=== PATIENT | male | born 1955 | race Hispanic/Latino ===

== ENCOUNTER 2016-09-07 10:34 | Day surgery (SDC) | payer MEDICARE ==
[~2016-09-07 10:34] MED LIST: NACL 0.9% IR ONE
[2016-09-07] MEDS ORDERED: NACL 0.9% 1000 ML 1,000 ML ONE (11:10)
--- NOTE | 2016-09-07 11:19 | Anesthesia Day of Surgery ---
Anesthesia Day of Surgery - Day of Surgery Patient Examined: Yes Patient H&P Reviewed: Yes Patient is NPO: Yes
[2016-09-07] MEDS ORDERED: VERSED IV NR (11:20)
[2016-09-07] MEDS ORDERED: NACL 0.9% 1000 ML 1,000 ML IV SCH (11:20)
--- NOTE | 2016-09-07 11:20 | Anesthesia Consultation ---
Anesthesia Consult and Med Hx Date of service: 09/07/16 - Airway Anesthetic Teeth Evaluation: Good, Caps (over front top tooth) ROM Head & Neck: Adequate Mental/Hyoid Distance: Adequate Mallampati Class: Class II Intubation Access Assessment: Probably Good - Pulmonary Exam CTA: Yes - Cardiac Exam Cardiac Exam: RRR - Pre-Operative Health Status ASA Pre-Surgery Classification: ASA2 Proposed Anesthetic Plan: General - Pulmonary Hx Smoking: No Hx Asthma: No - Cardiovascular System Hx Hypertension: No - Central Nervous System Hx Seizures: No CVA: No Hx Back Pain: Yes (chronic pain) - Endocrine Hx Renal Disease: No Hx Insulin Dependent Diabetes: Yes - Other Systems Hx Obesity: Yes
[2016-09-07 11:27] LABS: Basophils % (Auto) 0.6 % (0.0-1.8); Eosinophils % (Auto) 1.1 % (0.0-4.3); Hematocrit 38.1 % (35.5-45.6); Hemoglobin 12.6 gm/dl (11.8-15.2); Mean Corpuscular HGB Conc 33 % (32-34); Mean Corpuscular Hemoglobin 31 pg (28-32); Mean Corpuscular Volume 94 fl (84-94); Platelet Count 262 K/mm3 (140-440); Red Blood Count 4.05 M/mm3 (3.65-5.03); Red Cell Distribution Width 13.5 % (13.2-15.2); White Blood Count 5.3 K/mm3 (4.5-11.0)
[2016-09-07 11:38] LABS: Anion Gap 16 mmol/L; BUN/Creatinine Ratio 23.33; Blood Urea Nitrogen 14 mg/dL (9-20); Calcium 8.8 mg/dL (8.4-10.2); Carbon Dioxide 23 mmol/L (22-30); Glucose 181 mg/dL (75-100); Potassium 4.2 mmol/L (3.6-5.0); Sodium 139 mmol/L (137-145)
[2016-09-07] MEDS ORDERED: SUBLIMAZE ONE (11:42)
[2016-09-07] MEDS ORDERED: DIPRIVAN 10 MG/ML IV ONE (11:42)
[2016-09-07] MEDS ORDERED: ZOFRAN IV PRN (12:00)
[2016-09-07] MEDS ORDERED: ANCEF/STERILE WATER 2 GM/20 ML IV NR (12:00)
[2016-09-07] MEDS ORDERED: PEPCID PO NR (12:00)
[2016-09-07] MEDS ORDERED: XYLOCAINE MPF 2% ONE (12:32)
[2016-09-07] MEDS ORDERED: QUELICIN ONE (12:32)
[2016-09-07] MEDS ORDERED: ZEMURON IV ONE (12:32)
[2016-09-07] MEDS ORDERED: ROBINUL ONE (12:36)
[2016-09-07] MEDS ORDERED: NEOSTIGMINE ONE (12:36)
[2016-09-07] MEDS ORDERED: DILAUDID ONE (12:39)
[2016-09-07] MEDS ORDERED: ZOFRAN ONE (12:56)
[2016-09-07] MEDS ORDERED: NACL 0.9% IR ONE (13:19)
--- NOTE | 2016-09-07 13:26 | Discharge Summary ---
Short Stay Discharge Plan Activity: advance as tolerated Weight Bearing Status: Weight Bear as Tolerated Diet: diabetic Wound: per your surgeon's advice Follow up with: PRIMARY CARE, [Primary Care Provider] - 7 Days
[2016-09-07] MEDS: DILAUDID IV PRN ×2 (14:00→14:10)
--- NOTE | 2016-09-07 14:30 | Operative Report ---
PREOPERATIVE DIAGNOSES: Chronic back pain, disk disease status post multiple operations for removal of a nerve stimulator and 2 leads from the back. POSTOPERATIVE DIAGNOSES: Chronic back pain, disk disease status post multiple operations for removal of a nerve stimulator and 2 leads from the back. ANESTHESIA: General. BLOOD LOSS: Minimal. FINDINGS AND DESCRIPTION OF THE PROCEDURE: The patient had two leads in the back. These were tacked to the subcutaneous tissue with a stitch. It was not easy to remove them. We had to really go ahead and dissect more superiorly to reach an area where they would come out. At that maneuvering I transected them, flushed with the skin, and then after that I opened an incision over the stimulator on the left buttock area after changing the instruments. This was deepened to subcutaneously all the way to the cecum that was then removed in toto. We had good hemostasis. Then, the wound was closed with interrupted stitches of 2-0 Vicryl and then the skin with a continuous stitch interlocking nylon 3-0 for that purpose. My attention was then turned to the wound in the back which was debrided more and all the necrotic tissue was taken out. Then, I closed it with 2 stitches using for that purpose #1 nylon, used 2 stitches only leaving in between some spaces where these were packed with use of 1-inch Iodoform gauze and the bandage were applied. The patient was then transferred to the recovery room in good condition. I did talk to his very extensively, asked her to remove the packs on Monday and to call me and he may take a shower after that and to see me in about 2 weeks. Continue the same with his antibiotics mainly vancomycin and his pain medications given to him by Dr. Salazar. JOB# [id number] FELISHA/DONALD
[2016-09-07] MEDS ORDERED: TRIPLE ANTIBIOTIC TP ONE (14:38)
--- NOTE | 2016-09-07 15:08 | Post Anesthesia Evaluation ---
- Post Anesthesia Evaluation Patient Participated: Yes Airway Patent: Yes Stable Respiratory Function: Yes Nausea/Vomiting: No Temp > 96.8F: Yes Pain Manageable: Yes Adequeate Hydration: Yes Anesthesia Complications: No Block Receding Appropriately: Not Applicable Patient on Ventilator: No Other Comments: Patient had red rash under each eye and upper eyelids in distribution of tape that is used to tape eyes during surgery. Likely had a reaction to the tape. Given Benadryl 50mg IV. Small bruise in left inner upper eyelid. Patient was prone during surgery on prone pillow. Eyes were without pressure per early childhood specialist. May have poked himself when waking up. Actual eyeball and cornea clear of any defects. No vision problems.
[2016-09-07] MEDS ORDERED: FLUSH HEPARIN IV ONE (15:25)
[2016-09-07] MEDS ORDERED: BENADRYL IV ONE (16:00)
[2016-09-07 16:30] VITALS: BP 133/94
--- NOTE | 2016-09-07 18:10 | Discharge Summary ---
FINAL DIAGNOSIS: Chronic low back pain. HOSPITAL COURSE: This patient was seen in my office about 10 days ago. He was referred to me by Dr. Salazar from [facility] because of severe low back pain that has been experiencing over the last 3-4 years. He had apparently surgery in the back and for some reason this did not work well, so Dr. Salazar put a neurotransmitter hoping to alleviate the pain. Apparently, it got infected with some pus coming out from his wound. This was handled for a good 2 months with antibiotics to no avail then, the results came as MRSA. So, I was asked to have the system removed and this was done today under general anesthesia. Postoperatively, the patient did well. He was discharged home to be seen in my office about 2 weeks. I did indicate to his to remove the packing on Monday for which he may take a shower, to call me if he has any problem, otherwise I did indicate to her that I will be out of town for the coming week and she may call to office, my nurse would direct her as to where she needs to go. FINAL DIAGNOSIS: Chronic back pain. JOB# [id number] FELISHA/DONALD
== END 2016-09-07 15:35 | disposition home or self-care (01) ==
LOC: OR 10:34
PROVIDERS: ATTEND Surgery
DX: G89.29 Other chronic pain (principal); M54.9 Dorsalgia, unspecified; E11.9 Type 2 diabetes mellitus without complications; E66.9 Obesity, unspecified; Z68.32 Body mass index [BMI] 32.0-32.9, adult; Z79.84 Long term (current) use of oral hypoglycemic drugs
CPT/HCPCS: 36415; 63661; 63688; 80048; 82962; 85025; 87075; 87116; 88302; J0330; J0690; J1170; J1200; J1642; J2250; J2405; J2704; J2710; J3010; J7030; 86403; 87076; 87186; 88300; A6250

== ENCOUNTER 2021-10-04 06:00 | Observation (INO) | payer OTHER, MEDICARE ==
[2021-09-30 09:57] LABS: Hematocrit 41.5 % (35.5-45.6); Hemoglobin 13.9 gm/dl (11.8-15.2); Mean Corpuscular HGB Conc 34 % (32-34); Mean Corpuscular Volume 95 fl (84-94); Platelet Count 244 K/mm3 (140-440); Red Blood Count 4.38 M/mm3 (3.65-5.03); Red Cell Distribution Width 13.4 % (13.2-15.2)
[2021-09-30 10:23] LABS: Alanine Aminotransferase 29 units/L (7-56); Albumin 4.1 g/dL (3.9-5); Blood Urea Nitrogen 13 mg/dL (9-20); Calcium 9.1 mg/dL (8.4-10.2); Hemolysis Index 3
[2021-09-30 10:25] LABS: BUN/Creatinine Ratio 19
--- NOTE | 2021-09-30 14:56 | Anesthesia Consultation ---
Anesthesia Consult and Med Hx Date of service: 10/04/21 - Airway Anesthetic Teeth Evaluation: Good, Caps, Crowns ROM Head & Neck: Adequate Mental/Hyoid Distance: Adequate Mallampati Class: Class II Intubation Access Assessment: Good - Pre-Operative Health Status ASA Pre-Surgery Classification: ASA2 Proposed Anesthetic Plan: General - Pulmonary Hx Smoking: No Hx Asthma: No Hx Respiratory Symptoms: No (+2FS) Hx Sleep Apnea: No (ANISA PRE SCREEN LOW RISK) - Cardiovascular System Hx Hypertension: No (LISINOPRIL FOR KIDNEY PROTECTION PER PT) Hx Heart Attack/AMI: No (Pt reports negative ECHO/NST May 2020 at [facility]) - Central Nervous System Hx Seizures: No CVA: No Hx Back Pain: Yes (CHRONIC- HX BACK SURGERY X 9) Hx Psychiatric Problems: No - Gastrointestinal Hx Gastroesophageal Reflux Disease: No - Endocrine Hx Renal Disease: No Hx Insulin Dependent Diabetes: Yes Hx Non-Insulin Dependent Diabetes: Yes - Hematic Hx Anemia: No - Other Systems Hx Cancer: No Hx Obesity: Yes - Additional Comments Anesthesia Medical History Comments: Pt had gastric surgery at [facility] and reports delayed emergence
[~2021-10-04 06:00] MED LIST changes: +ACETAMINOPHEN 500 MG TAB PO ONE; +ACETAMINOPHEN 500 MG TAB PO SCH; +CELECOXIB 200 MG CAP PO NR; +GABAPENTIN 300 MG CAP PO NR; +LACTATED RINGERS 1,000 ML IV SCH; +MAGNESIUM OXIDE 400 MG TAB PO ONE; +MAGNESIUM OXIDE 400 MG TAB PO SCH; +MIDAZOLAM 2 MG/2 ML INJ IV NR; -NACL 0.9% IR ONE
[2021-10-04] MEDS ORDERED: ONDANSETRON 4 MG/2 ML INJ IV PRN (07:23)
[2021-10-04] MEDS ORDERED: HYDROmorphone 0.5 MG/0.5 ML INJ IV PRN (07:23)
[2021-10-04] MEDS ORDERED: ONDANSETRON 4 MG/2 ML INJ ONE (07:27)
[2021-10-04] MEDS ORDERED: LIDOCAINE MPF (2%) 20 MG/1 ML VIAL 5 ML ONE (07:27)
[2021-10-04] MEDS ORDERED: fentaNYL 100 MCG/2 ML INJ ONE (07:27)
[2021-10-04] MEDS ORDERED: dexAMETHasone 20 MG/5 ML VIAL ONE (07:27)
[2021-10-04] MEDS ORDERED: propofoL 200 MG/20 ML VIAL IV ONE (07:28)
[2021-10-04] MEDS ORDERED: SODIUM CHLORIDE P/F VIAL 10 ML 10 ML ONE (07:30)
[2021-10-04] MEDS ORDERED: rifAMPin 600 MG VIAL ONE (07:30)
[2021-10-04] MEDS ORDERED: BUPIVACAINE/PF (0.5%) 5 MG/1 ML 30 ML VIAL INFILTRATI ONE (07:30)
[2021-10-04] MEDS ORDERED: SODIUM CHLORIDE 0.9% 500 ML 500 ML ONE (07:31)
[2021-10-04] MEDS ORDERED: NEOMY 40 MG/POLYMYXIN B 200,000 UNITS/ML (GU) AMPULE IR ONE ×2 (07:31→09:13)
[2021-10-04] MEDS ORDERED: SODIUM CHLORIDE P/F VIAL 10 ML 20 ML ONE (07:36)
[2021-10-04] MEDS ORDERED: GENTAMICIN 120 MG in SODIUM CHLORIDE 0.9% 100 ML IV SCH (07:45)
[2021-10-04] MEDS ORDERED: VANCOMYCIN/NS 1 GM/250 ML 1 GM/250 ML BAG IV NR (08:00)
[2021-10-04] MEDS ORDERED: GENTAMICIN/NS 120MG/100ML 120 MG/100 ML BAG IV ONE (08:00)
[2021-10-04] MEDS ORDERED: HYDROcodone/ACETAMINOPHEN 5-325 MG TAB PO PRN ×2 (08:16→09:30)
[2021-10-04] MEDS ORDERED: MORPHINE 4 MG/1 ML INJ IV PRN ×2 (08:21→09:30)
[2021-10-04] MEDS ORDERED: ACETAMINOPHEN 325 MG TAB PO PRN ×2 (08:21→09:00)
[2021-10-04] MEDS ORDERED: TOBRAMYCIN 40 MG/ML VIAL 2 ML IV ONE ×2 (08:30→09:18)
[2021-10-04] MEDS ORDERED: ePHEDrine SULFATE 50 MG/1 ML INJ ONE (08:39)
[2021-10-04] MEDS ORDERED: BUPIVACAINE/PF (0.25%) 2.5 MG/ML 30 ML VIAL INFILTRATI ONE (08:55)
[2021-10-04] MEDS ORDERED: TOBRAMYCIN 80 MG in SODIUM CHLORIDE 0.9% 100 ML IV SCH (09:00)
[2021-10-04] MEDS ORDERED: SODIUM CHLORIDE 0.9% IRR 1,500 ML BOTTLE IR ONE (09:14)
[2021-10-04] MEDS ORDERED: BUPIVACAINE/PF (0.5%) 5 MG/1 ML 10 ML VIAL INFILTRATI ONE (09:15)
[2021-10-04] MEDS ORDERED: SODIUM CHLORIDE 0.9% P/F 10 ML VIAL INFILTRATI ONE (09:15)
[2021-10-04] MEDS ORDERED: SODIUM CHLORIDE 0.9% 500 ML IVPB IRRIGATION ONE (09:16)
[2021-10-04] MEDS ORDERED: rifAMPin 600 MG VIAL IV ONE (09:17)
[2021-10-04] MEDS ORDERED: NALOXONE 0.4 MG/1 ML INJ IV PRN (09:30)
--- NOTE | 2021-10-04 09:52 | Short Stay Summary ---
Short Stay Documentation Date of service: 10/04/21 - History H&P: obtained from office - Allergies and Medications Current Medications: Allergies No Known Allergies Allergy (Verified 09/28/21 17:19) Home Medications Medication Instructions Recorded Confirmed Last Taken Type Metformin HCl [Glucophage] 500 mg PO DAILY 09/07/16 09/28/21 09/04/16 20:00 History Atorvastatin [Lipitor Tab] 80 mg PO QHS 09/28/21 09/28/21 Unknown History Finasteride [Proscar] 5 mg PO QDAY 09/28/21 09/28/21 Unknown History Insulin Aspart (Nf) [Novolog] 12 unit SQ TID 09/28/21 09/28/21 Unknown History Insulin Glargine [Lantus VIAL] 40 units SUB-Q QHS 09/28/21 09/28/21 Unknown History Semaglutide [Ozempic] 1 mg SQ QWEEK 09/28/21 09/28/21 Unknown History Tamsulosin [Flomax] 0.4 mg PO QDAY 09/28/21 09/28/21 Unknown History lisinopriL [Zestril TAB] 40 mg PO QDAY 09/28/21 09/28/21 Unknown History Active Medications Acetaminophen (Acetaminophen 500 Mg Tab) 1,000 mg PO ONCE DENNY Stop: 10/04/21 23:59 Acetaminophen (Acetaminophen 325 Mg Tab) 650 mg PO Q4H PRN PRN Reason: Pain MILD(1-3)/Fever >100.5/ARANA Hydrocodone Bitart/Acetaminophen (Hydrocodone/Acetaminophen 5-325 Mg Tab) 2 each PO Q6H PRN PRN Reason: Pain, Moderate (4-6) Celecoxib (Celecoxib 200 Mg Cap) 400 mg PO PREOP NR Stop: 10/04/21 23:59 Gabapentin (Gabapentin 300 Mg Cap) 300 mg PO PREOP NR Stop: 10/04/21 23:59 Hydromorphone HCl (Hydromorphone 0.5 Mg/0.5 Ml Inj) 0.5 mg IV Q10MIN PRN PRN Reason: Pain , Severe (7-10) Stop: 10/04/21 23:59 Lactated Ringer's (Lactated Ringers) 1,000 mls @ 125 mls/hr IV DIRECT DENNY Magnesium Oxide (Magnesium Oxide 400 Mg Tab) 400 mg PO ONCE DENNY Stop: 10/04/21 23:59 Midazolam HCl (Midazolam 2 Mg/2 Ml Inj) 2 mg IV PREOP NR Stop: 10/04/21 23:59 Morphine Sulfate (Morphine 4 Mg/1 Ml Inj) 4 mg IV Q4H PRN PRN Reason: Pain , Severe (7-10) Naloxone HCl (Naloxone 0.4 Mg/1 Ml Inj) 0.1 mg IV Q2MIN PRN PRN Reason: Res Rate </= 8 or 02 SAT < 92% Ondansetron HCl (Ondansetron 4 Mg/2 Ml Inj) 4 mg IV ONCE PRN PRN Reason: Nausea And Vomiting Stop: 10/04/21 23:59 - Brief post op/procedure progress note Date of procedure: 10/04/21 Pre-op diagnosis: ED Post-op diagnosis: same Procedure: ipp coloplast 20cm +1 cm RTE, scrotaplasty Anesthesia: PRAVIN Surgeon: OTTO AGRAWAL Estimated blood loss: minimal Pathology: list (scrotal skin) Specimen disposition: to lab Condition: stable - Hospital course Hospital course: pt has pain meds, abx, post op info dc baires & dressing---looks good - Disposition Condition at discharge: Stable Short Stay Discharge Plan Follow up with: [facility] [Primary Care Provider] - 7 Days
[2021-10-04] MEDS ORDERED: DEXTROSE 50% IN WATER (25GM) 50 ML SYRINGE IV PRN (10:02)
--- NOTE | 2021-10-04 10:31 | Operative Report ---
DATE OF SURGERY: 10/04/2021 PREOPERATIVE DIAGNOSIS: Erectile dysfunction. POSTOPERATIVE DIAGNOSES: Erectile dysfunction, redundant scrotal skin. PROCEDURES: Insertion of inflatable penile prosthesis (Coloplast Titan 20 cm with 1 cm rear tip grain wafer machine operator), injection of corporal body with pharmacologic agent, scrotoplasty. SURGEON: Nikhil Ramirez M.D. CARDIAC SURGEON: Flor Rivera. ANESTHESIA: General. ESTIMATED BLOOD LOSS: Minimal. FLUIDS: Crystalloid. COMPLICATIONS: No complications. INDICATIONS: This patient is a 66-year-old gentleman known to our service with a long history of erectile dysfunction, refractory to medical management. He has tried the oral erectile dysfunction agent TriMix with minimal improvement. Reviewed options, he agreed to proceed with surgical intervention. He has had multiple back surgeries, has a history of diabetes and hernia repair. The patient is aware I will place reservoir via a midline placement whether intraabdominal or subrectus fascia. DESCRIPTION OF PROCEDURE: The patient was taken to the operative suite, placed in a supine position. After adequate general anesthesia, he was prepped and draped in a sterile fashion. Fernandez catheter was placed on the operative field. Flor Rivera was present at the bedside to assist throughout the procedure. A 60 mL of 0.25% Marcaine was injected in the penis. No plaque or curvature could be appreciated. Transscrotal incision was made with a Bovie. Sharp dissection was taken down to the corporal body, 2-0 Vicryl stay sutures were placed bilaterally. Corporotomies were made. Gentle dilation with measuring tool was performed. Measurements revealed a total length of 21 cm bilaterally. Therefore, a 20 cm Titan device with 1 cm rear tip grain wafer machine operator was prepped. A 125 mL Conceal reservoir was prepped and placed in the subrectus fascia. In the midline, I made a small incision with a hemostat, extended it to allow my finger and placement of the reservoir. Insertion of 100 mL sterile water was placed. No back pressure could be appreciated. The device was prepped and placed in the corporal bodies with the aid of a Parvez needle. Corporotomies were closed with 2-0 Vicryl in a running fashion and inflated with excellent cosmetic appearance. The reservoir and pump was connected with the quick click connection system, was inflated again with excellent cosmetic appearance. The pump was placed in the dependent portion of the scrotum. Dartos layer was closed with a pursestring 2-0 Vicryl and then a running 2-0 Vicryl stitch. Redundant scrotal skin was excised. Scrotal skin was closed with 3-0 Vicryl in interrupted fashion. Xeroform gauze, collodion and mummy wrap was placed. The patient tolerated the procedure well. He will be observed overnight. He has Wayne and Bactrim. TID: [id number] RECEIPT: [id number] [facility]/RIS
[2021-10-04] MEDS ORDERED: HYDROmorphone 1 MG/1 ML INJ IV PRN (10:38)
[2021-10-04] MEDS: ceFAZolin/NS 1 GM/50 ML 1 GM/50 ML BAG IV SCH ×2 (11:15→18:54)
--- NOTE | 2021-10-04 11:43 | Consultation ---
History of Present Illness - Reason for Consult Consult date: 10/04/21 Medical management Requesting physician: OTTO RAMIREZ - History of Present Illness 66 YO Male with Obesity, LDD, DM, HTN, Metabolic Syndrome admitted for elective Urologic surgery. Consult placed by Dr. Ramirez for medical management. PT seen and evaluated in his room. No reported nursing events. Pt denies fever, chills, chest Pain, recent ill contacts or known exposure to COVID 19. Pt resting comfortably. Past History Past Medical History: diabetes, hypertension, other (see HPI) Past Surgical History: Other (urplogic surgery) Social history: . denies: smoking, alcohol abuse, prescription drug abuse Family history: diabetes, hypertension Medications and Allergies Allergies Allergy/AdvReac Type Severity Reaction Status Date / Time codeine Allergy Itching Verified 10/04/21 10:50 Home Medications Medication Instructions Recorded Confirmed Last Taken Type Metformin HCl [Glucophage] 500 mg PO DAILY 09/07/16 09/28/21 09/04/16 20:00 History Atorvastatin [Lipitor Tab] 80 mg PO QHS 09/28/21 09/28/21 Unknown History Finasteride [Proscar] 5 mg PO QDAY 09/28/21 09/28/21 Unknown History Insulin Aspart (Nf) [Novolog] 12 unit SQ TID 09/28/21 09/28/21 Unknown History Insulin Glargine [Lantus VIAL] 40 units SUB-Q QHS 09/28/21 09/28/21 Unknown History Semaglutide [Ozempic] 1 mg SQ QWEEK 09/28/21 09/28/21 Unknown History Tamsulosin [Flomax] 0.4 mg PO QDAY 09/28/21 09/28/21 Unknown History lisinopriL [Zestril TAB] 40 mg PO QDAY 09/28/21 09/28/21 Unknown History Active Meds: Active Medications Acetaminophen (Acetaminophen 500 Mg Tab) 1,000 mg PO ONCE DENNY Stop: 10/04/21 23:59 Last Admin: 10/04/21 06:45 Dose: 1,000 mg Acetaminophen (Acetaminophen 325 Mg Tab) 650 mg PO Q4H PRN PRN Reason: Pain MILD(1-3)/Fever >100.5/ARANA Hydrocodone Bitart/Acetaminophen (Hydrocodone/Acetaminophen 5-325 Mg Tab) 2 each PO Q6H PRN PRN Reason: Pain, Moderate (4-6) Atorvastatin Calcium (Atorvastatin 40 Mg Tab) 80 mg PO QHS DENNY Celecoxib (Celecoxib 200 Mg Cap) 400 mg PO PREOP NR Stop: 10/04/21 23:59 Last Admin: 10/04/21 06:45 Dose: 400 mg Dextrose (Dextrose 50% In Water (25gm) 50 Ml Syringe) 50 ml IV Q30MIN PRN; Protocol PRN Reason: Hypoglycemia Finasteride (Finasteride 5 Mg Tab) 5 mg PO QDAY DENNY Gabapentin (Gabapentin 300 Mg Cap) 300 mg PO PREOP NR Stop: 10/04/21 23:59 Last Admin: 10/04/21 06:45 Dose: 300 mg Hydromorphone HCl (Hydromorphone 0.5 Mg/0.5 Ml Inj) 0.5 mg IV Q10MIN PRN PRN Reason: Pain , Severe (7-10) Stop: 10/04/21 23:59 Last Admin: 10/04/21 10:42 Dose: 0.25 mg Hydromorphone HCl (Hydromorphone 1 Mg/1 Ml Inj) 0.25 mg IV Q10MIN PRN PRN Reason: Pain, Moderate (4-6) Lactated Ringer's (Lactated Ringers) 1,000 mls @ 125 mls/hr IV DIRECT DENNY Last Admin: 10/04/21 07:00 Dose: 125 mls/hr Sodium Chloride (Nacl 0.45% 1000 Ml) 1,000 mls @ 100 mls/hr IV DIRECT DENNY Cefazolin Sodium (Ancef/Ns 1 Gm/50 Ml) 1 gm in 50 mls @ 100 mls/hr IV Q8H DENNY; Protocol Stop: 10/04/21 19:29 Last Admin: 10/04/21 11:15 Dose: 100 mls/hr Insulin Glargine (Insulin Glargine 100 Units/Ml) 40 units SUB-Q QHS [facility] Insulin Human Lispro (Insulin Lispro 100 Unit/Ml) 12 unit SUB-Q TID [facility] Lisinopril (Lisinopril 40 Mg Tab) 40 mg PO QDAY [facility] Magnesium Oxide (Magnesium Oxide 400 Mg Tab) 400 mg PO ONCE DENNY Stop: 10/04/21 23:59 Last Admin: 10/04/21 06:45 Dose: 400 mg Metformin HCl (Metformin 500 Mg Tab) 500 mg PO QDAY [facility] Midazolam HCl (Midazolam 2 Mg/2 Ml Inj) 2 mg IV PREOP NR Stop: 10/04/21 23:59 Last Admin: 10/04/21 08:10 Dose: 2 mg Miscellaneous Medication (Semaglutide [Ozempic]) 1 mg SQ QWEEK [facility] Morphine Sulfate (Morphine 4 Mg/1 Ml Inj) 4 mg IV Q4H PRN PRN Reason: Pain , Severe (7-10) Naloxone HCl (Naloxone 0.4 Mg/1 Ml Inj) 0.1 mg IV Q2MIN PRN PRN Reason: Res Rate </= 8 or 02 SAT < 92% Ondansetron HCl (Ondansetron 4 Mg/2 Ml Inj) 4 mg IV ONCE PRN PRN Reason: Nausea And Vomiting Stop: 10/04/21 23:59 Tamsulosin HCl (Tamsulosin 0.4 Mg Cap) 0.4 mg PO QDAY [facility] Review of Systems Constitutional: no weight loss, no weight gain, no fever, no chills Ears, nose, mouth and throat: no ear pain, no tinnitis, no nose pain, no nasal congestion, no nasal discharge Cardiovascular: no chest pain, no rapid/irregular heart beat, no edema, no lightheadedness Respiratory: no cough, no excessive sputum, no dyspnea on exertion Gastrointestinal: no abdominal pain, no vomiting, no diarrhea, no constipation, no hematemesis Genitourinary Male: no hematuria, no flank pain, no urinary hesitancy, no nocturia, no incontinence, no erectile dysfunction Musculoskeletal: no neck stiffness, no shooting arm pain, no arm numbness/tingling, no low back pain, no shooting leg pain Integumentary: no rash, no redness, no jaundice, no boils Neurological: no head injury, no paralysis, no parathesias, no numbness, no tingling, no seizures, no syncope Psychiatric: no anxiety, no memory loss, no sleep disturbances, no insomnia Endocrine: no cold intolerance, no polydipsia, no polyuria, no nocturia Allergic/Immunologic: no urticaria, no allergic rhinitis, no wheezing Exam - Constitutional Vitals: Temp Pulse Resp BP Pulse Ox 97.5 F L 69 15 115/53 97 10/04/21 11:05 10/04/21 11:05 10/04/21 11:05 10/04/21 11:05 10/04/21 11:05 General appearance: Present: obese - EENT Eyes: Present: PERRL ENT: hearing intact, clear oral mucosa - Neck Neck: Present: supple, normal ROM - Respiratory Respiratory effort: normal Respiratory: bilateral: CTA - Cardiovascular Heart Sounds: Present: S1 & S2. Absent: rub, click - Extremities Extremities: pulses symmetrical, No edema Peripheral Pulses: within normal limits - Abdominal General gastrointestinal: Present: soft, non-tender, non-distended, normal bowel sounds Male genitourinary: Present: normal - Integumentary Integumentary: Present: clear, warm, dry - Musculoskeletal Musculoskeletal: gait normal, strength equal bilaterally - Psychiatric Psychiatric: appropriate mood/affect, intact judgment & insight - Neurologic Neurologic: CNII-XII intact, moves all extremities Results - Labs CBC & Chem 7: 09/30/21 09:35 09/30/21 09:36 Assessment and Plan - Patient Problems (1) HTN (hypertension) Current Visit: Yes Status: Acute Qualifiers: Hypertension type: primary hypertension Qualified Code(s): I10 - Essential (primary) hypertension Plan to address problem: Monitor BP q shift, continue medical management (2) Diabetes Current Visit: Yes Status: Acute Plan to address problem: consistent carbohydrate diet, accu check, insulin protocol (3) Metabolic syndrome Current Visit: Yes Status: Acute Plan to address problem: Balanced diet, increased physical activity at discharge (4) Obesity (BMI 30.0-34.9) Current Visit: Yes Status: Acute Plan to address problem: balanced diet, weight reduction, increased physical activity at discharge (5) HLD (hyperlipidemia) Current Visit: Yes Status: Acute Qualifiers: Hyperlipidemia type: mixed hyperlipidemia Qualified Code(s): E78.2 - Mixed hyperlipidemia Plan to address problem: statin therapy (6) Advance care planning Current Visit: Yes Status: Acute Plan to address problem: disease education conducted, care plan discussed, prognosis discussed, +30 minutes (7) Preventative health care Current Visit: Yes Status: Acute Plan to address problem: Pt counseled regarding weight reduction, f/u with PCP regarding all age and risk factor related screening tests. +30 minutes.
[2021-10-04] MEDS: SODIUM CHLORIDE 0.45% 1000 ML 1,000 ML IV SCH ×2 (12:16→22:11)
[2021-10-04] MEDS ORDERED: NON-FORMULARY EACH (Insulin Aspart (Nf) 100 UNIT/ML Units) SQ SCH (14:00)
--- NOTE | 2021-10-04 14:06 | Anesthesia Day of Surgery ---
Anesthesia Day of Surgery - Day of Surgery Patient Examined: Yes Patient H&P Reviewed: Yes Patient is NPO: Yes
--- NOTE | 2021-10-04 14:06 | Post Anesthesia Evaluation ---
- Post Anesthesia Evaluation Patient Participated: Yes Airway Patent: Yes Stable Respiratory Function: Yes Nausea/Vomiting: No Temp > 96.8F: Yes Pain Manageable: Yes Adequeate Hydration: Yes Anesthesia Complications: No
[2021-10-04] MEDS: INSULIN LISPRO 100 UNIT/ML SUB-Q SCH ×2 (15:01→20:46)
[2021-10-04] MEDS ORDERED: INSULIN GLARGINE 100 UNITS/ML SUB-Q SCH (22:00)
[2021-10-04] MEDS ORDERED: NON-FORMULARY EACH (Atorvastatin [Lipitor] 80 MG Tablet) PO SCH (22:00)
[2021-10-05 05:31] VITALS: BP 118/63
--- NOTE | 2021-10-05 07:38 | Progress Note ---
Assessment and Plan Assessment and plan: Patient is 66 YO Male with Obesity, LDD, DM, HTN, Metabolic Syndrome admitted for elective Urologic surgery for ipp coloplast 20cm +1 cm RTE, scrotaplasty without complications. Consult placed by Dr. Ramirez for medical management. PT seen and evaluated in his room. No reported nursing events. Pt denies fever, chills, chest Pain, recent ill contacts or known exposure to COVID 19. 10/05: Patient seen and examined today clinically stable. Fernandez catheter removed he is able to void stable for discharge. Blood sugar was mildly elevated but has improved patient is well versed on management of his blood sugar will continue with his daily diary and send to his doctors at the [facility]. (1) HTN (hypertension) Current Visit: Yes Status: Acute Qualifiers: Hypertension type: primary hypertension Qualified Code(s): I10 - Essential (primary) hypertension Plan to address problem: Monitor BP q shift, continue medical management (2) Diabetes Current Visit: Yes Status: Acute Plan to address problem: consistent carbohydrate diet, accu check, insulin protocol (3) Metabolic syndrome Current Visit: Yes Status: Acute Plan to address problem: Balanced diet, increased physical activity at discharge (4) Obesity (BMI 30.0-34.9) Current Visit: Yes Status: Acute Plan to address problem: balanced diet, weight reduction, increased physical activity at discharge (5) HLD (hyperlipidemia) Current Visit: Yes Status: Acute Qualifiers: Hyperlipidemia type: mixed hyperlipidemia Qualified Code(s): E78.2 - Mixed hyperlipidemia Plan to address problem: statin therapy (6) Advance care planning Current Visit: Yes Status: Acute Plan to address problem: disease education conducted, care plan discussed, prognosis discussed, +30 minutes (7) Preventative health care Current Visit: Yes Status: Acute Plan to address problem: Pt counseled regarding weight reduction, f/u with PCP regarding all age and risk factor related screening tests. +30 minutes. History Interval history: Patient was seen and examined this morning alongside with , No new complaints at this time. Anticipating discharge today. Hospitalist Physical - Physical exam Narrative exam: VITAL SIGNS: Reviewed. GENERAL: The patient appears normally developed, Vital signs as documented. HEAD: No signs of head trauma. EYES: Pupils are equal. Extraocular motions intact. EARS: Hearing grossly intact. MOUTH: Oropharynx is normal. NECK: No adenopathy, no JVD. CHEST: Chest with clear breath sounds bilaterally. No wheezes, rales, or rhonchi. CARDIAC: Regular rate and rhythm. S1 and S2, without murmurs, gallops, or rubs. VASCULAR: No Edema. Peripheral pulses normal and equal in all extremities. ABDOMEN: Large abdominal pannus. Soft, non tender and non distended. No rebound or guarding, and no masses palpated. Bowel Sounds normal. MUSCULOSKELETAL: Good range of motion of all major joints. Extremities without clubbing, cyanosis or edema. NEUROLOGIC EXAM: Alert and oriented x 3 No focal sensory or strength deficits. Speech normal. Follows commands. PSYCHIATRIC: Mood normal. SKIN: detail exam as documented in skin assessment - Constitutional Vitals: Temp Pulse Resp BP Pulse Ox 98.0 F 66 18 118/63 95 10/05/21 05:31 10/05/21 05:28 10/05/21 05:31 10/05/21 05:28 10/05/21 05:31 General appearance: Present: obese Results - Labs CBC & Chem 7: 09/30/21 09:35 09/30/21 09:36 Labs: Laboratory Last Values WBC 5.4 K/mm3 (4.5-11.0) 09/30/21 09:35 RBC 4.38 M/mm3 (3.65-5.03) 09/30/21 09:35 Hgb 13.9 gm/dl (11.8-15.2) 09/30/21 09:35 Hct 41.5 % (35.5-45.6) 09/30/21 09:35 MCV 95 fl (84-94) H 09/30/21 09:35 MCH 32 pg (28-32) 09/30/21 09:35 MCHC 34 % (32-34) 09/30/21 09:35 RDW 13.4 % (13.2-15.2) 09/30/21 09:35 Plt Count 244 K/mm3 (140-440) 09/30/21 09:35 Sodium 140 mmol/L (137-145) 09/30/21 09:36 Potassium 3.8 mmol/L (3.6-5.0) 09/30/21 09:36 Chloride 108.6 mmol/L (98-107) H 09/30/21 09:36 Carbon Dioxide 23 mmol/L (22-30) 09/30/21 09:36 Anion Gap 12 mmol/L 09/30/21 09:36 BUN 13 mg/dL (9-20) 09/30/21 09:36 Creatinine 0.7 mg/dL (0.8-1.3) L 09/30/21 09:36 Estimated GFR > 60 ml/min 09/30/21 09:36 BUN/Creatinine Ratio 19 % 09/30/21 09:36 Glucose 115 mg/dL (75-100) H 09/30/21 09:36 POC Glucose 270 mg/dL (70-105) H 10/04/21 16:41 Calcium 9.1 mg/dL (8.4-10.2) 09/30/21 09:36 Total Bilirubin 0.30 mg/dL (0.1-1.2) 09/30/21 09:36 AST 19 units/L (5-40) 09/30/21 09:36 ALT 29 units/L (7-56) 09/30/21 09:36 Alkaline Phosphatase 80 units/L (35-129) 09/30/21 09:36 Total Protein 6.5 g/dL (6.3-8.2) 09/30/21 09:36 Albumin 4.1 g/dL (3.9-5) 09/30/21 09:36 Albumin/Globulin Ratio 1.7 % 09/30/21 09:36 SARS-CoV-2 (PCR) Negative (Negative) 09/30/21 09:25 Fernandez/IV: Voiding Method Incontinent Active Medications - Current Medications Current Medications: Generic Name Dose Route Start Last Admin Trade Name Freq PRN Reason Stop Dose Admin Acetaminophen 650 mg 10/04/21 09:00 Acetaminophen 325 Mg Tab PO Q4H PRN Pain MILD(1-3)/Fever >100.5/ARANA Hydrocodone Bitart/Acetaminophen 2 each 10/04/21 09:30 Hydrocodone/Acetaminophen 5-325 Mg Tab PO Q6H PRN Pain, Moderate (4-6) Atorvastatin Calcium 80 mg 10/04/21 22:00 10/04/21 22:07 Atorvastatin 40 Mg Tab PO 80 mg QHS DENNY Administration Dextrose 50 ml 10/04/21 10:02 Dextrose 50% In Water (25gm) 50 Ml Syringe IV Q30MIN PRN Hypoglycemia Protocol Finasteride 5 mg 10/05/21 10:00 Finasteride 5 Mg Tab PO QDAY [facility] Lactated Ringer's 1,000 mls @ 125 mls/hr 10/04/21 06:00 10/04/21 07:00 Lactated Ringers IV 125 mls/hr DIRECT DENNY Administration Sodium Chloride 1,000 mls @ 100 mls/hr 10/04/21 11:00 10/04/21 22:11 Nacl 0.45% 1000 Ml IV 100 mls/hr DIRECT DENNY Administration Insulin Glargine 40 units 10/04/21 22:00 10/04/21 22:08 Insulin Glargine 100 Units/Ml SUB-Q 40 units QHS [facility] Administration Insulin Human Lispro 12 unit 10/04/21 14:00 10/04/21 20:46 Insulin Lispro 100 Unit/Ml SUB-Q 12 unit TID [facility] Administration Lisinopril 40 mg 10/05/21 10:00 Lisinopril 40 Mg Tab PO QDAY [facility] Metformin HCl 500 mg 10/05/21 10:00 Metformin 500 Mg Tab PO QDAY [facility] Miscellaneous Medication 1 mg 10/11/21 10:00 Semaglutide [Ozempic] SQ QWEEK [facility] Morphine Sulfate 4 mg 10/04/21 09:30 Morphine 4 Mg/1 Ml Inj IV Q4H PRN Pain , Severe (7-10) Naloxone HCl 0.1 mg 10/04/21 09:30 Naloxone 0.4 Mg/1 Ml Inj IV Q2MIN PRN Res Rate </= 8 or 02 SAT < 92% Tamsulosin HCl 0.4 mg 10/05/21 10:00 Tamsulosin 0.4 Mg Cap PO QDAY [facility]
[2021-10-05] MEDS: SODIUM CHLORIDE 0.45% 1000 ML 1,000 ML IV SCH (07:56)
[2021-10-05] MEDS: INSULIN LISPRO 100 UNIT/ML SUB-Q SCH (07:56)
[2021-10-05] MEDS ORDERED: NON-FORMULARY EACH (Metformin Hcl [Glucophage] 1,000 MG Tablet) PO SCH (10:00)
[2021-10-05] MEDS ORDERED: FINASTERIDE 5 MG TAB PO SCH (10:00)
[2021-10-05] MEDS ORDERED: metFORMIN 500 MG TAB PO SCH (10:00)
[2021-10-05] MEDS ORDERED: TAMSULOSIN 0.4 MG CAP PO SCH (10:00)
[2021-10-05] MEDS ORDERED: LISINOPRIL 40 MG TAB PO SCH (10:00)
[2021-10-11] MEDS ORDERED: SEMAGLUTIDE 1 MG/0.75 ML SQ SCH (10:00)
== END 2021-10-05 10:30 | disposition home or self-care (01) ==
LOC: OR 06:00 → 3A 08:23
PROVIDERS: ADMIT Urology; ATTEND Urology
DX: N52.01 Erectile dysfunction due to arterial insufficiency (principal); Z20.822 Contact with and (suspected) exposure to COVID-19; N52.9 Male erectile dysfunction, unspecified; N40.1 Benign prostatic hyperplasia with lower urinary tract symptoms; R33.8 Other retention of urine; M54.89 Other dorsalgia
CPT/HCPCS: 36415; 54405; 55175; 80053; 82962; 85027; 88305; 96365; 96372; 96375; C1813; G0378; G0379; J0690; J1100; J1170; J1580; J2250; J2405; J2704; J3010; J3260; J3370; J3490; J7030; J7040; J7120; U0003; Q9967; J1815